=== PATIENT | female | born 1990 | race Caucasian/White ===

== ENCOUNTER 2023-12-02 10:32 | Emergency (ER) | payer BC, SELFPAY ==
[2023-12-02 10:33] VITALS: BP 143/106
--- NOTE | 2023-12-02 10:35 | ED.GENMED ---
ED Provider Triage
<Nan Rosales PA-C - Last Filed: 12/02/23 10:40>
-
Patient seen by provider in Triage?: Seen in Triage
Attestation: A medical screening examination has been initiated by a qualified medical provider. Based on the assessment performed at this time, it has been determined that an emergent medical condition may exist and the patient has been informed
that further medical evaluation and possible additional diagnostic testing may be needed.
HPI: 33yoF here with vaginal bleeding since yesterday. Heavy bleeding with clots. 1-2 pads/hour. Seen by PCP a few month ago for similar complaints and was started on an iron supplement. C/o lightheadedness. Has not seen OBGYN yet.
GENERAL: Alert , in no apparent distress
EYE: No visual abnormalities.
NECK: Trachea midline
ENT: No visible abnormalities.
LUNGS: No acute respiratory distress
NEUROLOGICAL: Alert and oriented
SKIN: Skin intact. No visible changes.
MUSCULOSKELETAL: Moving extremities normally
PSYCH: Normal and appropriate interaction.
This is a medical evaluation conducted in person to initiate diagnostic evaluation and provide initial therapeutics. Please see further documentation by the treating clinician.
CBC, CMP, coags, HCG, and pelvic ultrasound ordered.
History of Present Illness
<Nan Rosales PA-C - Last Filed: 12/02/23 10:40>
General
Chief Complaint: Vaginal Bleeding
Time Seen by Provider: 12/02/23 11:27
<Girish Talbert MD - Last Filed: 12/02/23 13:54>
History of Present Illness
History of Present Illness:
Patient is a 33-year-old woman who is otherwise healthy G0 presenting to the emergency department with vaginal bleeding. She states that she has had a normal period up until 9 months ago. 9 months ago she did not have her period for 3 months. For
the past 6 months she has had a heavy period that lasted about 12 days. She states that intermittently is extremely heavy with clots. She states that today she uses about 2 pads an hour with large clots passing that are the size of a quarter. She
states that yesterday she had a normal bleeding. She did talk to her PCP who started her on iron supplementation. She does state that there is family history of heavy menstruation. She did feel lightheaded dizzy today. No syncopal events. No
family history of bleeding disorders. No easy bleeding. She is not sexually active.
Past History
<Nan Rosales PA-C - Last Filed: 12/02/23 10:40>
Past History
ED Past Medical History: None
ED Past Surgical History: None
Social History
Tobacco: Non-smoker
Alcohol: None
Drug: None
Personal: Single
Living: with family
Phy Exam
<Girish Talbert MD - Last Filed: 12/02/23 13:54>
Physical Exam
Physical Exam:
GENERAL: in no acute distress
HEENT: normocephalic, extraocular movements intact, moist oral mucosa
NECK: normal inspection
RESPIRATORY: no respiratory distress, clear to auscultation bilaterally
CARDIOVASCULAR: regular rate and rhythm
ABDOMEN/: soft, non-distended, non-tender to palpation, no rebound or guarding
Pelvic: External genitalia without erythema, exudate or discharge. Vaginal vault is with some bleeding cervix is of normal color without lesion. The os is closed. There is bleeding noted. No cervical motion tenderness is seen.
EXTREMITIES: non-tender, no edema/swelling
NEUROLOGIC: awake and alert, moves all extremities
SKIN: warm
Course
<Nan Rosales PA-C - Last Filed: 12/02/23 10:40>
Orders/Labs/Results
Orders:
Orders
12/02/23 10:37
Test Result ONCE
Pelvis & Transvaginal US [US Pelvis W Transvag Combined] Urgent
Comment:
Reason For Exam: Dysfunctional uterine bleeding
12/02/23 10:43
Complete Blood Count/With Diff Urgent
Comprehensive Metabolic Panel Urgent
HCG, Serum Qualitative Screen Urgent
PTT Urgent
Prothrombin Time Urgent
Abnormal Lab Results
12/02/23
10:43
RDW 18.6 H %
(11.5-14.5)
Glucose 133 H mg/dl
(70-99)
12/02/23 10:43
12/02/23 10:43
Vital Signs
Initial and Last Documented VS:
Initial Vital Signs
Temp Pulse Resp BP Pulse Ox
98.4 F 90 18 143/106 99
12/02/23 10:33 12/02/23 10:33 12/02/23 10:33 12/02/23 10:33 12/02/23 10:33
Last Documented Vital Signs
Temp Pulse Resp BP Pulse Ox
98.4 F 90 18 143/106 99
12/02/23 10:33 12/02/23 10:33 12/02/23 10:33 12/02/23 10:33 12/02/23 10:33
<Girish Talbert MD - Last Filed: 12/02/23 13:54>
Orders/Labs/Results
Orders:
Orders
12/02/23 10:37
Test Result ONCE
Pelvis & Transvaginal US [US Pelvis W Transvag Combined] Urgent
Comment:
Reason For Exam: Dysfunctional uterine bleeding
12/02/23 10:43
Complete Blood Count/With Diff Urgent
Comprehensive Metabolic Panel Urgent
HCG, Serum Qualitative Screen Urgent
PTT Urgent
Prothrombin Time Urgent
Abnormal Lab Results
12/02/23
10:43
RDW 18.6 H %
(11.5-14.5)
Glucose 133 H mg/dl
(70-99)
12/02/23 10:43
12/02/23 10:43
Vital Signs
Initial and Last Documented VS:
Initial Vital Signs
Temp Pulse Resp BP Pulse Ox
98.4 F 90 18 143/106 99
12/02/23 10:33 12/02/23 10:33 12/02/23 10:33 12/02/23 10:33 12/02/23 10:33
Last Documented Vital Signs
Temp Pulse Resp BP Pulse Ox
98.4 F 90 18 143/106 99
12/02/23 10:33 12/02/23 10:33 12/02/23 10:33 12/02/23 10:33 12/02/23 10:33
<Girish Talbert MD - Last Filed: 12/02/23 13:54>
MDM/Problems Addressed
Differential Diagnosis Includes:
Patient is a 33-year-old G0 presenting to the emergency department with heavy vaginal bleeding. Vitals are unremarkable and exam does show some bleeding from the cervical os. Differential consists of fibroids versus polyps versus menorrhagia
versus iron deficiency or . Blood work obtained prior to evaluation shows a normal hemoglobin. Her test is negative. Pelvic ultrasound is consistent with a fibroid. Will discuss with gynecology to help assist with outpatient
follow-up.
<Girish Talbert MD - Last Filed: 12/02/23 13:54>
*Critical Care Note
Total Time (30-74mins, 75-104mins- exclusive of procedures): Not Applicable
<Girish Talbert MD - Last Filed: 12/02/23 13:54>
Update Note
Update Note:
I discussed with on-call gynecology who recommends Provera. Will prescribe. Strict return precautions given.
ED Attending Note
<Nan Rosales PA-C - Last Filed: 12/02/23 10:40>
-
Portions of this chart may have been created with voice recognition software.� Occasional wrong word or��sound alike� substitutions may have occurred due to the inherent limitations of voice recognition software.
Discharge Plan
Departure
Patient Disposition: Home (Routine Discharge)
Date of Disposition: 12/02/23
Time of Disposition: 13:49
Patient with high blood pressure during this ER visit?: No
Discharge Problem:
Fibroid, Vaginal bleeding
Instructions: Heavy Periods ED
Prescriptions:
New
medroxyprogesterone [Provera] 5 mg tablet
5 mg PO .below Qty: 18 0RF
Rx Instructions:
5mg tid x3 d, then bid x3d then qdx 3d
No Action
simethicone [Gas Relief Ultra Strength] 180 MG capsule
180 mg PO BIDPRN PRN (Reason: distention/gas) Qty: 20 0RF
Referrals:
Ronel Minor MD [Active] -
Denise Traylor PA-C [Family Provider] -
Activity Restrictions/Additional Instructions:
You were seen in the Emergency Department today for vaginal bleeding. While you were here we performed blood work, which was reassuring. We did start you on a medication. Please take it 3 times a day for 3 days. Then take it 2 times a day for 3
days get once a day for 3 days. Please follow-up with a shaker out.
We would like for you to follow up with your primary care physician for further evaluation. If you experience fever, worsening of your symptoms, or develop any other new or concerning symptoms, please return to the Emergency Department immediately.
Please see the attached sheet for additional information.
Interventions
Interventions:
*Risk Screen - Suicide Last Done: 12/02/23 10:33
*General Assessment Last Done: 12/02/23 10:33
*Neglect/Abuse Screening Last Done: 12/02/23 10:33
ED- Fall Risk Assessment Last Done: 12/02/23 11:54
*ED COVID-19 Vaccine History Last Done: 12/02/23 11:48
ED-Female Genitourinary Assessment Last Done: 12/02/23 11:54
Discharge Date and Time
Print Language: [place]
[2023-12-02 10:50] LABS: % Basophils 0.4 % (0-2); % Eosinophils 0.6 % (0-6); % Immature Granulocytes 0.3 % (0-0.5); % Lymphocytes 27.6 % (20.5-51.1); % Monocytes 6.5 % (1.7-9.3); % Neutrophils 64.6 % (42.2-75.2); Absolute Monocytes 0.5 10^3/uL (0.1-0.6); Absolute Neutrophils 4.6 10^3/uL (1.4-6.5); Hematocrit 38.2 % (37.0-47.0); Hemoglobin 12.6 g/dL (12.0-16.0); Mean Corpuscular Hgb 27.6 pg (27.0-31.0); Mean Corpuscular Volume 83.6 fL (81.0-99.0); Mean Platelet Volume 10.1 fL (7.4-10.4); Nucleated Red Blood Cells % 0 %; Platelet Count 237 10^3/uL (130-400); Red Blood Cell Count 4.57 10^6/uL (4.20-5.40); Red Cell Dist. Width 18.6 % (11.5-14.5); White Blood Cell Count 7.1 10^3/uL (4.8-10.8)
[2023-12-02 11:04] LABS: INR 0.99; PT 12.9 Sec (11.4-14.6)
[2023-12-02 11:05] LABS: APTT 33.1 Sec (23.4-35.0)
[2023-12-02 11:07] LABS: HCG, Serum Qualitative Screen Negative
[2023-12-02 11:09] LABS: ALT (SGPT) 17 U/L (0-35); AST (SGOT) 20 U/L (14-36); Albumin 4.5 g/dl (3.5-5.0); Alkaline Phosphatase 78 U/L (38-126); Blood Urea Nitrogen 9 mg/dl (7-17); Calcium 9.7 mg/dl (8.4-10.2); Carbon Dioxide 24 mmol/L (22-30); Chloride 104 mmol/L (98-107); Glucose 133 mg/dl (70-99); Potassium 4.5 mmol/L (3.5-5.1); Sodium 139 mmol/L (135-145); Total Bilirubin 0.7 mg/dl (0.2-1.3); Total Protein 6.9 g/dl (6.3-8.2); eGFR > 60.00
[2023-12-02 11:50] VITALS: BMI 27.6
[2023-12-02 14:00] VITALS: BP 138/94
== END 2023-12-02 14:02 | disposition home or self-care (01) ==
LOC: EMR 10:32
PROVIDERS: Physician Assistant; EMERGENCY PHYSICIAN Student in an Organized Health Care Education/Training Program; FAMILY PHYSICIAN Student in an Organized Health Care Education/Training Program
DX: D25.9 Leiomyoma of uterus, unspecified (principal); N93.9 Abnormal uterine and vaginal bleeding, unspecified
CPT/HCPCS: 99284; 76830; 76856; 80053; 84703; 85025; 85610; 85730